=== PATIENT | female | born 1995 | race Caucasian/White ===

== ENCOUNTER 2023-03-02 04:30 | Inpatient (IN) ==
[2023-03-02] MEDS ORDERED: Lidocaine 1% VIAL 10 MG/ML 30 ML VIAL INJ PRN (05:34)
[2023-03-02] MEDS ORDERED: Lactated Ringers 1000 ml BAG 1,000 ML IV ONE (05:34)
[2023-03-02] MEDS ORDERED: Buffered Lidocaine 1% SYRIN 1 ml INTRADERM ONE (05:34)
[2023-03-02] MEDS ORDERED: Calcium Carb (TUMS) 500 mg CHEW TAB PO PRN (05:36)
[2023-03-02] MEDS ORDERED: Ondansetron 4 mg VIAL 2 MG/ML 2 ml VIAL IV PRN (05:36)
[2023-03-02] MEDS ORDERED: Lactated Ringers 1000 ml BAG 1,000 ML IV SCH ×2 (06:00→13:00)
[2023-03-02 06:18] LABS: Urine Benzodiazepine Screen None Detected (None Detect); Urine Cannabinoids Screen None Detected (None Detect); Urine Opiates Screen None Detected (None Detect)
[2023-03-02] MEDS ORDERED: Oxytocin 10 UNITS/ML 1 ML VIAL IM ONE (12:12)
[2023-03-02] MEDS: Dibucaine 1% OINT 28.35 GM TUBE PR PRN (19:02)
[2023-03-02] MEDS: Witch Hazel PAD JAR TOPICAL PRN (19:02)
[2023-03-02 21:21] LABS: ABS Lymphocytes 0.9 10^3/uL (1.0-4.8); ABS Neutrophils 13.1 10^3/uL (1.5-7.6); Eosinophil % 0.1 %; Hematocrit 29.6 % (35-45); Lymphocyte % 6.2 %; Mean Corpuscular Hemoglobin 29.4 pg (27-33); Mean Corpuscular Hgb Conc 33.9 g/dL (31-36); Mean Corpuscular Volume 86.5 fL (80-97); Mean Platelet Volume 8.6 fL (7.5-11.2); Platelet Count 171 10^3/uL (150-450); Red Blood Count 3.42 10^6/uL (3.63-4.92)
[2023-03-03 07:42] LABS: ABS Lymphocytes 1.8 10^3/uL (1.0-4.8); ABS Monocytes 0.9 10^3/uL (0.0-0.9); ABS Neutrophils 8.7 10^3/uL (1.5-7.6); Eosinophil % 0.3 %; Hematocrit 27.5 % (35-45); Hemoglobin 9.5 g/dL (11.5-14.3); Lymphocyte % 15.6 %; Mean Corpuscular Hemoglobin 29.7 pg (27-33); Mean Corpuscular Hgb Conc 34.6 g/dL (31-36); Mean Corpuscular Volume 85.9 fL (80-97); Mean Platelet Volume 8.9 fL (7.5-11.2); Platelet Count 156 10^3/uL (150-450); Red Blood Count 3.21 10^6/uL (3.63-4.92); White Blood Count 11.4 10^3/uL (3.8-11.8)
[2023-03-04 07:47] VITALS: BP 107/59
[2023-03-04 08:43] LABS: ABS Eosinophils 0.2 10^3/uL (0.0-0.5); ABS Lymphocytes 1.4 10^3/uL (1.0-4.8); ABS Monocytes 0.5 10^3/uL (0.0-0.9); ABS Neutrophils 5.2 10^3/uL (1.5-7.6); ABS Nucleated RBC 0.01 10^3/ul; Eosinophil % 2.2 %; Hematocrit 28.1 % (35-45); Hemoglobin 9.8 g/dL (11.5-14.3); Lymphocyte % 19.5 %; Mean Corpuscular Hemoglobin 30.4 pg (27-33); Mean Corpuscular Volume 86.9 fL (80-97); Mean Platelet Volume 8.6 fL (7.5-11.2); Nucleated Red Blood Cells % 0.1 %/100WBC (0.0-0.8); Platelet Count 153 10^3/uL (150-450); Red Blood Count 3.23 10^6/uL (3.63-4.92); Red Cell Distribution Width 13.1 % (12-17); White Blood Count 7.3 10^3/uL (3.8-11.8)
[2023-03-04] MEDS: Dibucaine 1% OINT 28.35 GM TUBE PR PRN (12:07)
[2023-03-04] MEDS: Witch Hazel PAD JAR TOPICAL PRN (12:08)
== END 2023-03-04 12:40 | disposition home or self-care (01) | DRG 807 ==
LOC: MCHOBOUT 04:30 → MCHOB 05:32
PROVIDERS: ADMIT Advanced Practice Midwife; ATTEND Registered Nurse